=== PATIENT | female | born 1955 | race Caucasian/White ===

== ENCOUNTER → 2022-01-10 | Day surgery (SDC) | payer MEDICARE ==
[~2022-01-10] MED LIST: CLOPIDOGREL75 MG PO; CRESTOR10 MG PO; EXCEDRIN EXTRA1 EAC1 PO; FLONASE ALLERG9.9 ML INH; LISINOPRIL10 MG PO; NEURONTIN300 MG PO; OR PHACO EYE KIT ONE; PREMARIN0.625 MG PO; PREOP PHACO EYE KIT ONE; PROVENTIL HFA6.7 GM INH; TRELEGY ELLIPT1 EACH; ZYRTEC10 MG PO
[2022-01-10 13:30] VITALS: BP 98/54
== END | disposition home or self-care (01) ==
LOC: OR 11:19
PROVIDERS: ATTEND Ophthalmology
DX: H25.11 Age-related nuclear cataract, right eye (principal); J44.9 Chronic obstructive pulmonary disease, unspecified; I25.10 Atherosclerotic heart disease of native coronary artery without angina pectoris; I10 Essential (primary) hypertension; E78.5 Hyperlipidemia, unspecified; Z79.02 Long term (current) use of antithrombotics/antiplatelets; Z79.82 Long term (current) use of aspirin; Z79.899 Other long term (current) drug therapy
CPT/HCPCS: V2632